=== PATIENT | female | born 2005 | race Asian ===

== ENCOUNTER 2024-08-28 14:40 | Observation (INO) ==
--- NOTE | 2024-08-28 14:45 | ED Triage Note ---
Date of Service August 28, 2024 Provider in Triage Author: Tyler Waggoner History of Present Illness This patient was briefly evaluated while in triage. An abbreviated physical exam was performed. This patient is a 18-year-old Male who presents to the ED for evaluation right abdominal pain x 2 days, worse with movement/walking no urinary symptoms Physical Exam GENERAL: NAD CARDIOVASCULAR: RRR RESPIRATORY: CTA ABDOMEN: BS x 4. RLQ TTP. Initial orders for labs and / or imaging were placed and patient was placed in the waiting area until a bed is available. Please see further documentation for the full ED course.
[2024-08-28 15:28] LABS: Appearance Urine Cloudy (Clear); Bacteria Urine Automated 1+ (None Seen); Bilirubin Urine Negative (Negative); Blood Urine Negative (Negative); Color Urine Dark Yellow; Glucose Urine UA Negative (Negative); Ketones Urine 4+ (Negative); Leukocyte Esterase Urine Negative (Negative); Nitrite Urine Negative (Negative); Protein Urine Trace (Negative); RBC Urine Automated 0-2 /hpf (0-2); Specific Gravity Urine 1.026 (1.000-1.030); Urobilinogen Urine Negative (Negative); WBC Urine Automated 0-5 /hpf (0-5); pH Urine 5.5 (4.5-7.5)
[2024-08-28 15:31] LABS: Basophils # (auto) 0.05 K/uL (0.00-0.20); Basophils % (auto) 0.3 %; Hematocrit (blood only) 39.8 % (37.0-47.0); Hemoglobin 13.7 g/dl (12.0-16.0); Immature Granulocytes # (auto) 0.34 K/uL (0.01-0.20); Immature Granulocytes % (auto) 1.9 %; Lymphocytes # (auto) 1.72 K/uL (1.20-3.40); Lymphocytes % (auto) 9.7 %; Mean Corpuscular Hemoglobin 24.5 pg (25.0-34.0); Mean Corpuscular Hgb Conc 34.4 g/dL (32.0-36.0); Mean Corpuscular Volume 71.2 fL (80.0-100.0); Mean Platelet Volume 10.8 fL (9.4-12.4); Monocytes # (auto) 0.87 K/uL (0.11-0.59); Monocytes % (auto) 4.9 %; Neutrophils # (auto) 14.84 K/uL (1.40-6.50); Neutrophils % (auto) 83.2 %; Platelet Count 342 K/uL (130-400); RDW Coefficient of Variation 14.8 % (11.5-14.5); RDW Standard Deviation 37.2 fL (36.4-46.3); Red Blood Count 5.59 M/uL (4.20-5.40); White Blood Count 17.82 K/ul (4.8-10.8)
[2024-08-28 15:50] LABS: Pregnancy Test, Serum Negative (Negative)
[2024-08-28 15:55] LABS: Albumin Globulin Ratio 1.3 (0.9-2); Albumin Level 4.8 gm/dl (3.4-5.0); BUN Creatinine Ratio 12.1 (10-20); Bilirubin,Total 0.8 mg/dl (0.2-1.0); Calcium 9.9 mg/dl (8.6-10.3); Creatinine Clr Calc Pharmacy 117.7 ml/min; Globulin 3.7 gm/dl (2.5-4.0); Potassium 3.7 mmol/L (3.5-5.1); Total Protein 8.5 gm/dl (6.0-8.3)
[2024-08-28] MEDS: OPTIRAY 320 100ml IV ONE (16:23)
--- NOTE | 2024-08-28 16:43 | CT Scan Report ---
CT SCAN OF THE ABDOMEN AND PELVIS WITH IV CONTRAST CLINICAL HISTORY: Right lower quadrant abdominal pain. COMPARISON STUDY: No priors. TECHNIQUE: Following the IV administration of 93 cc of Optiray 320, CT scan of the abdomen and pelvi s is performed from the lung bases to the proximal femora. Images are reviewed in the axial, sagittal , and coronal planes. IV contrast was administered without complication. A dose lowering technique wa s utilized adhering to the principles of ALARA. CT DOSE: 341.63 mGy.cm FINDINGS: Lung bases: The heart is normal in size and without pericardial effusion. The lung bases are clear. Liver: The contrast-enhanced liver is normal in size, contour, and attenuation. There is no intrahepa tic biliary ductal dilatation. The hepatic veins and portal veins are patent. Gallbladder: Unremarkable. Spleen: Normal in size and attenuation. Pancreas: Unremarkable. Adrenal glands: Unremarkable. Kidneys: The contrast enhanced kidneys are normal in size and without hydronephrosis. The kidneys enh ance symmetrically. Abdominal vasculature: The abdominal aorta is normal in course and caliber. Bowel: There is no bowel obstruction. The appendix is dilated and fluid-filled, measuring up to 1.5 cm in diameter as seen on image #229. The appendiceal wall is thickened and hyperemic and there is pe riappendiceal inflammation. Findings are consistent with acute appendicitis. No abscess is seen. Peritoneum: There is no intraperitoneal free air or abdominal ascites. Lymphadenopathy: None. Pelvic viscera: The bladder is decompressed and not well evaluated. Uterus and adnexa are normal as v isualized in bilateral ovarian follicles. An involuting follicle is suggested in the right ovary. The re is a small to moderate volume of free fluid in the cul-de-sac. Skeletal structures: No lytic or blastic lesions are seen. IMPRESSION: 1. Acute appendicitis. 2. There is no evidence of abscess or perforation. 3. Free fluid in the cul-de-sac is nonspecific and likely physiologic. ACT 112: Negative or not required by law. Electronically signed by: Cl Cross M.D. 08/28/2024 4:42 PM
--- NOTE | 2024-08-28 16:43 | Emergency Department Note ---
History of Present Illness General Chief complaint: Abdominal Pain Stated complaint: SEVERE ABD PAIN Time Seen by Provider: 08/28/24 15:41 History of Present Illness Maximum Pain Intensity: 9 Patient is a healthy 18-year-old female who presents emergency department for evaluation of abdominal pain x 2 days. She states that she feels the pain throughout the but is primarily on the right lower abdomen and radiates across to the left. It is worse with coughing and walking. She rates her discomfort a 9/10 currently. She is felt nauseous, and admits to no appetite today, but has not vomited. No diarrhea or urinary symptoms. No fevers. She tried some Tylenol, without relief. She reports her last menstrual period was 08/07. Denies concern for , STI or vaginal discharge. She is sexually active, last was about a week ago. Home Medications Medication Instructions Recorded Confirmed Type No Known Home Medications 08/28/24 08/28/24 History Allergies Allergy/AdvReac Type Severity Reaction Status Date / Time No Known Allergies Allergy Verified 08/28/24 17:27 Past Med/Surg History Problem List (Updated 08/28/24 @ 16:57 by Tyler Waggoner) Acute appendicitis (Acute) Medical History (Updated 08/28/24 @ 16:57 by Tyler Waggoner) No significant past medical history Surgical History (Updated 08/28/24 @ 16:41 by Tyler Waggoner) No history of previous surgery Social History Smoking Status: Never smoker current occupation: [employer] student from [place] Feels Safe at Home: Yes Review of Systems A total of 10 systems reviewed and were otherwise negative Physical Exam Vital Signs Vital Signs - 24 hr 08/28/24 14:43 08/28/24 17:04 Temperature 36.8 C Temperature Source Temporal Artery Scan Pulse Rate 143 H Pulse Rate [Apical] 116 H Pulse Rhythm Regular Respiratory Rate 20 19 Respiratory Effort / Characteristics Non-Labored Spontaneous Respiratory Depth Normal Blood Pressure 126/63 Blood Pressure [Left Arm] 125/75 Blood Pressure Mean 84 Blood Pressure Mean [Left Arm] 91 Pulse Oximetry 97 100 Oxygen Delivery Method Room Air Room Air Sepsis Recent Fever Within 48 Hours No Sepsis New/Unexplained Change in Mental Status No Sepsis Action Taken by Nursing No Action Required CONSTITUTIONAL: [id number] EYES: Pupils equal, round, reactive to light and accommodation. EOMs intact without nystagmus. Sclera are anicteric. ENT: Tympanic membranes intact, with normal landmarks. External canals are clear. Oral and nasopharynx are clear. Mucous membranes are moist, no lesions, tongue and gums appear normal. NECK: No bruits auscultated. Supple without lymphadenopathy. No thyromegaly. No meningeal signs. Full active range of motion without discomfort. CARDIOVASCULAR: Regular rate and rhythm, with normal S1 and S2, no murmur or gallop or rub is heard. No carotid bruits auscultated. No JVD. Peripheral pulses easily palpable. RESPIRATORY: Breath sounds equal and clear to auscultation without wheezes, rales, or rhonchi heard. Full and equal chest expansion without accessory muscle use or retractions. ABDOMEN: Bowel sounds are present. The abdomen is soft, scaphoid, tender to percussion over the right lower quadrant, and tender to palpation with voluntary guarding in the right lower quadrant. INTEGUMENTARY: No lesions or rash, normal skin turgor. LYMPH: No lymphadenopathy. Course Course The patient was seen and assessed as above by myself from triage, then fully evaluated when she was placed in room a 2. IV lock was initiated. CBC with differential, CMP, urinalysis and serum hCG were collected. After she was roomed, she was ordered IV fluids, Zofran and fentanyl. Diagnostics, as interpreted by me: Laboratory studies: Elevated white count at 17,800 with left shift. No significant electrolyte imbalance. No ALIDA. No transaminitis. test negative. Urine microscopy concerning for dehydration, with 4+ ketones, otherwise no other indicators for infection. Imaging studies: CT scan of the abdomen pelvis with IV contrast is concerning for acute appendicitis. Appendix is dilated and fluid-filled measuring up to 1.5 cm in diameter. No abscess or perforation noted. All laboratory and diagnostic imaging studies were discussed with the patient. Consultation was placed with general surgery, patient discussed with Dr. Jackson. He evaluated the patient in the emergency department, and plan is for the OR later this evening. Please refer to H&P for further information. Differential diagnosis: UTI, pyelonephritis, kidney stone, appendicitis, ovarian cyst, ovarian torsion, , ectopic , PID, tubo-ovarian abscess, among others. Administered Medications Discontinued Medications Fentanyl Citrate (Fentanyl Citrate Pf 100 Mcg/2 Ml Vial) 50 mcg IV NOW STA Stop: 08/28/24 16:44 Last Admin: 08/28/24 17:07 Dose: 50 mcg Documented By: HAKEEM Sodium Chloride (Nss) 1,000 mls @ 999 mls/hr IV .Q1H1M SAMIR Stop: 08/28/24 17:44 Last Admin: 08/28/24 17:08 Dose: 999 mls/hr Documented By: HAKEEM Ioversol (Optiray 320 100ml) 93 ml IV ONCE ONE Stop: 08/28/24 16:24 Last Admin: 08/28/24 16:23 Dose: 93 ml Documented By: JOSE Ondansetron HCl (Ondansetron Inj 2 Mg/Ml 2 Ml Vial) 4 mg IV NOW STA Stop: 08/28/24 16:44 Last Admin: 08/28/24 17:07 Dose: 4 mg Documented By: HAKEEM Medical Decision Making Differential Diagnosis See ED course. Medical Records Attestation: I reviewed the patient's medical records. Home Medications Current Medication List: was personally reviewed by me Laboratory Data Attestation: I reviewed the patient's lab results. 08/28/24 15:10 08/28/24 15:10 Lab Results 08/28/24 Range/Units 15:10 WBC 17.82 H (4.8-10.8) K/ul RBC 5.59 H (4.20-5.40) M/uL Hgb 13.7 (12.0-16.0) g/dl Hct 39.8 (37.0-47.0) % MCV 71.2 L (80.0-100.0) fL MCH 24.5 L (25.0-34.0) pg MCHC 34.4 (32.0-36.0) g/dL RDW Std Deviation 37.2 (36.4-46.3) fL RDW Coeff of Darius 14.8 H (11.5-14.5) % Plt Count 342 (130-400) K/uL MPV 10.8 (9.4-12.4) fL Immature Gran % (Auto) 1.9 % Neut % (Auto) 83.2 % Lymph % (Auto) 9.7 % Butler % (Auto) 4.9 % Eos % (Auto) 0.0 % Baso % (Auto) 0.3 % Neut # (Auto) 14.84 H (1.40-6.50) K/uL Lymph # (Auto) 1.72 (1.20-3.40) K/uL Butler # (Auto) 0.87 H (0.11-0.59) K/uL Eos # (Auto) 0.00 (0.00-0.50) K/uL Baso # (Auto) 0.05 (0.00-0.20) K/uL Immature Gran # (Auto) 0.34 H (0.01-0.20) K/uL Sodium 135 L (136-145) mmol/L Potassium 3.7 (3.5-5.1) mmol/L Chloride 104 (98-107) mmol/L Carbon Dioxide 20 L (21-32) mmol/L Anion Gap 11 (3-11) BUN 7 (6-23) mg/dl Creatinine 0.58 L (0.6-1.2) mg/dl Est Cr Clr Drug Dosing 117.7 ml/min eGFR 133.61 BUN/Creatinine Ratio 12.1 (10-20) Glucose 91 (70-99(Fasting)) mg/dl Calcium 9.9 (8.6-10.3) mg/dl Total Bilirubin 0.8 (0.2-1.0) mg/dl AST 15 (13-39) U/L ALT 11 (7-52) U/L Alkaline Phosphatase 64 (34-104) U/L Total Protein 8.5 H (6.0-8.3) gm/dl Albumin 4.8 (3.4-5.0) gm/dl Globulin 3.7 (2.5-4.0) gm/dl Albumin/Globulin Ratio 1.3 (0.9-2) HCG, Qual Negative (Negative) Urine Color Dark Yellow Urine Appearance Cloudy A (Clear) Urine pH 5.5 (4.5-7.5) Ur Specific [place] 1.026 (1.000-1.030) Urine Protein Trace H (Negative) Urine Glucose (UA) Negative (Negative) Urine Ketones 4+ H (Negative) Urine Blood Negative (Negative) Urine Nitrite Negative (Negative) Urine Bilirubin Negative (Negative) Urine Urobilinogen Negative (Negative) Ur Leukocyte Esterase Negative (Negative) Urine WBC (Auto) 0-5 (0-5) /hpf Urine RBC (Auto) 0-2 (0-2) /hpf U Hyaline Cast (Auto) 3-5 H (0-2) /lpf U Epithel Cells (Auto) 11-20 H (0-2) /hpf Urine Bacteria (Auto) 1+ H (None Seen) Imaging Data Attestation: I personally reviewed and interpreted this imaging study as follows: Radiologist's Impression: Abdomen/Pelvis CT 08/28/24 14:45 CT SCAN OF THE ABDOMEN AND PELVIS WITH IV CONTRAST CLINICAL HISTORY: Right lower quadrant abdominal pain. COMPARISON STUDY: No priors. TECHNIQUE: Following the IV administration of 93 cc of Optiray 320, CT scan of the abdomen and pelvis is performed from the lung bases to the proximal femora. Images are reviewed in the axial, sagittal, and coronal planes. IV contrast was administered without complication. A dose lowering technique was utilized adhering to the principles of ALARA. CT DOSE: 341.63 mGy.cm FINDINGS: Lung bases: The heart is normal in size and without pericardial effusion. The lung bases are clear. Liver: The contrast-enhanced liver is normal in size, contour, and attenuation. There is no intrahepatic biliary ductal dilatation. The hepatic veins and portal veins are patent. Gallbladder: Unremarkable. Spleen: Normal in size and attenuation. Pancreas: Unremarkable. Adrenal glands: Unremarkable. Kidneys: The contrast enhanced kidneys are normal in size and without hydronephrosis. The kidneys enhance symmetrically. Abdominal vasculature: The abdominal aorta is normal in course and caliber. Bowel: There is no bowel obstruction. The appendix is dilated and fluid-filled, measuring up to 1.5 cm in diameter as seen on image #229. The appendiceal wall is thickened and hyperemic and there is periappendiceal inflammation. Findings are consistent with acute appendicitis. No abscess is seen. Peritoneum: There is no intraperitoneal free air or abdominal ascites. Lymphadenopathy: None. Pelvic viscera: The bladder is decompressed and not well evaluated. Uterus and adnexa are normal as visualized in bilateral ovarian follicles. An involuting follicle is suggested in the right ovary. There is a small to moderate volume of free fluid in the cul-de-sac. Skeletal structures: No lytic or blastic lesions are seen. IMPRESSION: 1. Acute appendicitis. 2. There is no evidence of abscess or perforation. 3. Free fluid in the cul-de-sac is nonspecific and likely physiologic. ACT 112: Negative or not required by law. Electronically signed by: Cl Cross M.D. 08/28/2024 4:42 PM MDM Narrative See ED course. Impression & Plan Acute appendicitis Discharge Plan Visit Data Chief Complaint: Abdominal Pain Stated Complaint: SEVERE ABD PAIN ED Provider: Jerson Parrish ED Midlevel Provider: Tyler Waggoner Discharge Problem: Acute appendicitis Patient Disposition: Being Evaluated by Surgeon Forms Stand Alone Forms: [id number] [facility] [employer] Prescriptions Prescriptions: No Action No Known Home Medications Referrals Referrals: PCP,NO [Physician] - Discharge Problem: Acute appendicitis Qualifiers: Acute appendicitis type: with localized peritonitis Appendicitis gangrene presence: without gangrene Appendicitis perforation presence: without perforation Appendicitis abscess presence: without abscess Qualified Code(s): K 35.30 - Acute appendicitis with localized peritonitis, without perforation or gangrene
[2024-08-28] MEDS: fentaNYL citrate PF 100 MCG/2 ML VIAL IV STA (17:07)
[2024-08-28] MEDS: ONDANSETRON INJ 2 MG/ML 2 ML VIAL IV STA (17:07)
[2024-08-28] MEDS: SODIUM CHLORIDE 0.9% 1,000 ML IV SCH ×2 (17:08→22:29)
--- NOTE | 2024-08-28 18:01 | History & Physical Report ---
Date of Service August 28, 2024 Assessment & Plan (1) Acute appendicitis: Plan: History examination and imaging all consistent with acute appendicitis. We discussed her options. We discussed risks which include bleeding, infection, injury to another organ, DVT, PE, OR, CVA etc. Following our discussion I answered all of her questions. Will proceed this evening with laparoscopic appendectomy. Acute appendicitis type: with localized peritonitis Appendicitis abscess presence: without abscess Appendicitis gangrene presence: without ga ngrene Appendicitis perforation presence: without perforation Qualified Code(s): K35.30 - Acute appendicitis with localized peritonitis, without per foration or gangrene History of Present Illness Primary Care Provider: [facility] 18-year-old female who has had abdominal pain for 2 days. It is slowly worsened and now has localized to the right lower quadrant. Allergies Allergy/AdvReac Type Severity Reaction Status Date / Time No Known Allergies Allergy Verified 08/28/24 17:27 Home Medications Medication Instructions Recorded Confirmed Type No Known Home Medications 08/28/24 08/28/24 History Past Med/Surg History Problem List (Updated 08/28/24 @ 16:57 by Tyler Waggoner) Acute appendicitis (Acute) Medical History (Updated 08/28/24 @ 16:57 by Tyler Waggoner) No significant past medical history Surgical History (Updated 08/28/24 @ 16:41 by Tyler Waggoner) No history of previous surgery Social History Smoking Status: Never smoker current occupation: [employer] student from [place] Feels Safe at Home: Yes Review of Systems All systems reviewed & are unremarkable except as noted in HPI & below Physical Exam Constitutional: WD/WN, vitals as above no acute distress and not ill appearing Eyes: PERRL, conjunctivae normal, anicteric sclerae EOM intact bilaterally ENMT: external ear and nose normal, oropharynx normal Ears: no hearing impairment Neck: trachea midline, no thyromegaly Respiratory: normal respiratory effort; no respiratory distress and does not use accessory muscles Cardiovascular: Rate/Rhythm: regular rate and regular rhythm Gastrointestinal (Abdomen): Soft. Positive tenderness greatest in the right lower quadrant. Positive guarding Skin: no rashes, warm and dry Psychiatric: Orientation: alert, oriented x 3 and cooperative Results & Data Vital Signs (Past 12 Hours) Vital Signs Temp Pulse Pulse Resp BP BP Pulse Ox 08/28/24 17:04 116 H 19 125/75 100 08/28/24 14:43 36.8 C 143 H 20 126/63 97 O2 Del Method 08/28/24 17:04 Room Air 08/28/24 14:43 Room Air
[2024-08-28] MEDS: ceFAZolin 2000MG 2,000 MG/15 ML SYR IV STA (18:30)
--- NOTE | 2024-08-28 18:46 | Anesthesiology Consultation ---
Date of Service August 28, 2024 Assessment & Plan Chart Review Chart Review: Acceptable Risk for Surgery and Patient NOT seen in Pre Admission Testing Consults Requested none ASA [id number] Proposed Anesthesia Anesthesia Type: General History Surgery Operation Date: 08/28/24 17:20 Proposed Procedures p Laparoscopic Appendectomy - Rahat Jackson, Height/Weight Height: 5 ft 1 in Weight: 50.9 kg Allergies Allergy/AdvReac Type Severity Reaction Status Date / Time No Known Allergies Allergy Verified 08/28/24 17:27 Medications Home Medications Medication Instructions Recorded Confirmed Last Taken No Known Home Medications 08/28/24 08/28/24 Unknown Past Medical History Medical History No significant past medical history Exercise / Class Metabolic Activity 1 > 8 Run/Swim/Ski/Tennis Past Surgical History Surgical History No history of previous surgery Past Anesthesia History No Hx of Anesthesia Complications and No Family Hx of Anesthesia Complications History of PONV No Hx of PONV and No Hx of Motion Sickness Social History Smoking Status: Never smoker Physical Exam Vital Signs Last Vital Signs Temp 36.8 C 08/28/24 14:43 Pulse 116 H 08/28/24 17:04 Resp 19 08/28/24 17:04 BP 125/75 08/28/24 17:04 Pulse Ox 100 08/28/24 17:04 O2 Del Method Room Air 08/28/24 17:04 Testing Laboratory Results 08/28/24 15:10 08/28/24 15:10 Urine Color Dark Yellow 08/28/24 15:10 Urine Appearance Cloudy (Clear) A 08/28/24 15:10 Urine pH 5.5 (4.5-7.5) 08/28/24 15:10 Ur Specific [place] 1.026 (1.000-1.030) 08/28/24 15:10 Urine Protein Trace (Negative) H 08/28/24 15:10 Urine Glucose (UA) Negative (Negative) 08/28/24 15:10 Urine Ketones 4+ (Negative) H 08/28/24 15:10 Urine Nitrite Negative (Negative) 08/28/24 15:10 Ur Leukocyte Esterase Negative (Negative) 08/28/24 15:10 Urine WBC (Auto) 0-5 /hpf (0-5) 08/28/24 15:10 Urine RBC (Auto) 0-2 /hpf (0-2) 08/28/24 15:10 U Hyaline Cast (Auto) 3-5 /lpf (0-2) H 08/28/24 15:10 U Epithel Cells (Auto) 11-20 /hpf (0-2) H 08/28/24 15:10 Urine Bacteria (Auto) 1+ (None Seen) H 08/28/24 15:10
[2024-08-28] MEDS ORDERED: PROPOFOL IV EMULSION 10 MG/ML 20 ML VIAL IV ONE (19:15)
[2024-08-28] MEDS ORDERED: ROCURONIUM BROMIDE 10 MG/ML 5 ML VIAL IV ONE (19:15)
[2024-08-28] MEDS ORDERED: fentaNYL citrate PF 100 MCG/2 ML VIAL ONE ×2 (19:15→19:46)
[2024-08-28] MEDS ORDERED: ePHEDrine sulfate 50 MG/ML AMP IV PRN (19:20)
[2024-08-28] MEDS ORDERED: NALOXONE HCL 0.4 MG/1 ML VIAL/CARP IV PRN (19:20)
[2024-08-28] MEDS ORDERED: ATROPINE SULFATE 0.1 MG/ML 10ML SYR IV PRN (19:20)
[2024-08-28] MEDS ORDERED: ONDANSETRON INJ 2 MG/ML 2 ML VIAL IV PRN (19:20)
[2024-08-28] MEDS ORDERED: PROMETHAZINE HCL 6.25 MG in SODIUM CHLORIDE 0.9% 50 ML IV PRN (19:20)
[2024-08-28] MEDS ORDERED: FLUMAZENIL 0.1 MG/1 ML 10 ML VIAL IV PRN (19:20)
[2024-08-28] MEDS ORDERED: ONDANSETRON INJ 2 MG/ML 2 ML VIAL ONE (19:48)
[2024-08-28] MEDS ORDERED: DEXAMETHASONE SOD INJ 4 MG/ML VIAL ONE (19:48)
[2024-08-28] MEDS ORDERED: KETOROLAC 30 MG/ML VIAL ONE (19:48)
[2024-08-28] MEDS ORDERED: SUGAMMADEX SODIUM 200 MG/2 ML VIAL IV ONE (20:03)
[2024-08-28] MEDS: BUPIVACAINE/EPINEPHRINE 0.5% MPF 1:200,000 30 ML VIAL ONE (20:31)
--- NOTE | 2024-08-28 20:35 | Operative Report ---
PG Post Operative Report Pre & Post Diagnosis Operation Date: 08/28/24 17:20 Pre-Op Diagnosis: Acute Appendicitis Post-Op Diagnosis: Acute Appendicitis I identified the patient and participated in the time-out.: Yes Procedure Operation Date: 08/28/24 17:20 Actual Procedures p Laparoscopic Appendectomy(Not Applicable) - Rahat Jackson DO Surgeon Rahat Jackson DO Cnc Manager maximino Kaba Estimated Blood Loss 10 Findings Consistent with Post-Op Diagnosis Specimens appendix Description of Procedure After informed consent was obtained the patient was taken to the operating room and placed in supine position. After successful intubation a Wood catheter was placed and the left arm was tucked. I began by making a periumbilical incision with an 11 blade scalpel and carried this down through the soft tissue using electrocautery. The anterior rectus fascia was opened using electrocautery and 2 #0 Vicryl stay sutures were placed. The peritoneum was elevated using hemostats and incised under direct vision using a Metzenbaum scissor. A finger sweep was performed. A 12 mm Leon trocar was placed and the abdomen was insufflated to 18 mmHg. A laparoscope was inserted and the abdomen was examined in 360. A suprapubic 5 mm port and a left lower quadrant 12 mm port were placed under direct vision. The patient was air planed to the left as well as placed in a slight Trendelenburg position. We began by looking in the right lower quadrant. We were able to readily identify the appendix and it was grossly inflamed. It had not perforated. There is a small amount of purulent fluid in the right lower quadrant and the pelvis. We immediately irrigated and suctioned this out. I was able to use primarily blunt dissection to pull the appendix away from the right lower quadrant sidewall. I was then able to use a SOWMYA brown cartridge stapler to transect both the mesentery of the appendix as well as the appendix itself at its base with the cecum. It was then placed into an Endo Catch bag and removed from the camera port site. We thoroughly irrigated the right lower quadrant as well as the pelvis. Initially there was a small amount of bleeding on the mesentery staple line. I controlled this with a clip claims correspondence clerk. Following this maneuver, there was adequate hemostasis. I ran the small bowel backwards from the terminal ileum for about 6 feet all of which was normal. All the peritoneal surfaces were normal. Small/ large bowel, liver, stomach etc. all appeared grossly normal. We did a final ir rigation and then removed all the trochars and desufflated the abdomen. The fascia of the camera port as well as the left lower quadrant were closed using 0 Vicryl in [id number] fashion. Wounds were all irrigated and closed using 4-0 Monocryl. Marcaine was injected around them for postoperative analgesia and skin glue used as a dressing. The patient was awakened extubated and transferred to recovery in stable condition. My physician's materials assistant was present through the entire case. he assisted with prepping the patient and helped with exposure for port placement, helped run the camera and helped with fascial/wound closure at the end of the procedure as well as dressing placement. I attest to the content of the Intraoperative Record and any orders documented therein. Any exceptions are noted below. I attest to the content of the Intraoperative Record and any orders documented therein. Any exceptions are noted below.
--- NOTE | 2024-08-28 20:55 | Anesthesiology Progress Note ---
Date of Service August 28, 2024 Anesthesia Post Procedure Vital Signs Vital Signs: Temp Pulse Pulse Resp BP BP Pulse Ox 08/28/24 20:50 115 H 16 107/70 100 08/28/24 20:44 36.3 C L 110 H 20 108/43 L 97 08/28/24 19:10 37 C 126 H 20 108/72 98 08/28/24 17:04 116 H 19 125/75 100 08/28/24 14:43 36.8 C 143 H 20 126/63 97 O2 Del Method 08/28/24 20:50 Room Air 08/28/24 20:44 Room Air 08/28/24 19:10 Room Air 08/28/24 17:04 Room Air 08/28/24 14:43 Room Air Pain Intensity Right Lower Abdomen: Pain Intensity: 8 Transfer of Care Handoff Completed per policy Notes Mental Status: alert / awake / arousable and participated in evaluation Patient Amnestic to Procedure: Yes Nausea / Vomiting: adequately controlled Pain: adequately controlled Airway Patency, RR, SpO2: stable & adequate BP & HR: stable & adequate Hydration State: stable & adequate Anesthetic Complications: no major complications apparent and Pt Satisfied with anesthetic care
[2024-08-28] MEDS: fentaNYL citrate PF 100 MCG/2 ML VIAL IV PRN (21:02)
[2024-08-28] MEDS: fentaNYL citrate PF 100 MCG/2 ML VIAL ONE (21:11)
[2024-08-28] MEDS: HYDROmorphone INJ 1 MG/ML SYRINGE IV PRN (21:20)
[2024-08-28] MEDS: HYDROmorphone INJ 1 MG/ML SYRINGE ONE (21:23)
[2024-08-28] MEDS: ACETAMINOPHEN 1,000 MG/100 ML VIAL IV PRN (22:29)
[2024-08-28] MEDS: ONDANSETRON INJ 2 MG/ML 2 ML VIAL IV PRN (22:36)
[2024-08-28] MEDS: PROMETHAZINE 6.25 MG/50.25 ML BAG IV STA (23:26)
[2024-08-28] MEDS: cefOXitin 2,000 MG in DEXTROSE 5 % MINI-B 50 ML IV SCH (23:44)
[2024-08-28] MEDS: MoRPHine SULFATE 4 MG/ML 1 ML CARP\\VIAL IV PRN (23:52)
[2024-08-29 00:59] VITALS: O2SAT 98
[2024-08-29 05:50] VITALS: PULSE 87; RESP 17; TEMP 98.2
[2024-08-29 06:13] LABS: Hematocrit (blood only) 33.3 % (37.0-47.0); Hemoglobin 11.6 g/dl (12.0-16.0); Mean Corpuscular Hemoglobin 24.5 pg (25.0-34.0); Mean Corpuscular Hgb Conc 34.8 g/dL (32.0-36.0); Mean Corpuscular Volume 70.4 fL (80.0-100.0); Mean Platelet Volume 11.3 fL (9.4-12.4); Platelet Count 290 K/uL (130-400); RDW Coefficient of Variation 14.7 % (11.5-14.5); RDW Standard Deviation 36.8 fL (36.4-46.3); Red Blood Count 4.73 M/uL (4.20-5.40); White Blood Count 13.06 K/ul (4.8-10.8)
[2024-08-29 06:29] LABS: BUN Creatinine Ratio 12.2 (10-20); Creatinine Clr Calc Pharmacy 139.3 ml/min; Potassium 4.4 mmol/L (3.5-5.1)
[2024-08-29 06:43] LABS: Basophils # (auto) 0.01 K/uL (0.00-0.20); Basophils % (auto) 0.1 %; Immature Granulocytes # (auto) 0.05 K/uL (0.01-0.20); Immature Granulocytes % (auto) 0.4 %; Lymphocytes % (auto) 6.1 %; Monocytes # (auto) 0.14 K/uL (0.11-0.59); Monocytes % (auto) 1.1 %; Neutrophils # (auto) 12.06 K/uL (1.40-6.50); Neutrophils % (auto) 92.3 %; Ovalocytes 1+
[2024-08-29] MEDS ORDERED: oxyCODONE HCL IR 5 MG TAB (IMMEDIATE RELEASE) PO PRN (07:40)
[2024-08-29] MEDS: oxyCODONE HCL IR 5 MG TAB (IMMEDIATE RELEASE) PO PRN (07:50)
[2024-08-29] MEDS ORDERED: ACETAMINOPHEN 325 MG TAB PO PRN (09:06)
--- NOTE | 2024-08-29 09:06 | Surgery Progress Note ---
Date of Service August 29, 2024 Assessment & Plan (1) S/P appendectomy: Plan: POD 1 lap appy VSS , wbc downtrending 13 (17), afebrile post surgical pain/discomfort abd , continue oral pain medication no n.v on clears will advance to regular +flatus anticipate discharge anthony today if tolerating diet and pain controlled as above. doing ok ok for d/c. instructions given Admission and Anticipated Discharge Date Admission Date: August 28, 2024 Subjective post surgical discomfort /pain no n/v , no f/v, CP or SOB no dysuria Review of Systems Constitutional: no fever and no chills Respiratory: no dyspnea Cardiovascular: no chest pain Gastrointestinal: + abdominal pain; no nausea and no vomit ing Genitourinary: no dysuria Musculoskeletal: no muscle weakness Psychiatric: no confusion Physical Exam Constitutional: cooperative and comfortable; no acute distress Respiratory: normal respiratory effort; no respiratory distress Cardiovascular: Rate/Rhythm: + abnormal rate Gastrointestinal (Abdomen): Inspection/Auscultation: + abdominal surgical incision (dermabond CDI ); abdomen not distended Percussion/Palpation: + abdomen tender and abdomen soft Results & Data Vital Signs (Past 12 Hours) Vital Signs Temp Pulse Pulse Resp BP BP Pulse Ox 08/29/24 05:46 98.2 F 87 17 100/59 L 98 08/29/24 03:40 98.4 F 96 H 16 103/61 98 08/29/24 00:59 99.3 F 92 H 16 109/68 98 08/29/24 00:00 99.1 F 110 H 16 111/64 100 08/28/24 23:03 99.3 F 108 H 18 109/68 99 08/28/24 22:30 99.0 F 111 H 16 105/61 99 08/28/24 22:00 98.8 F 105 H 16 105/61 99 08/28/24 21:50 105 H 12 110/63 93 08/28/24 21:40 101 H 14 116/61 98 08/28/24 21:30 108 H 15 108/60 99 08/28/24 21:20 98.2 F 99 H 23 122/77 99 08/28/24 21:10 101 H 16 113/69 97 O2 Del Method 08/29/24 05:46 Room Air 08/29/24 03:40 Room Air 08/29/24 00:59 Room Air 08/29/24 00:00 Room Air 08/28/24 23:03 Room Air 08/28/24 22:30 Room Air 08/28/24 22:00 Room Air 08/28/24 21:50 Room Air 08/28/24 21:40 Room Air 08/28/24 21:30 Room Air 08/28/24 21:20 Room Air 08/28/24 21:10 Room Air Results CBC w Diff Results: RBC 4.73 M/uL (4.20-5.40) 08/29/24 WBC 13.06 K/ul (4.8-10.8) H 08/29/24 Hgb 11.6 g/dl (12.0-16.0) L 08/29/24 Hct 33.3 % (37.0-47.0) L 08/29/24 MCV 70.4 fL (80.0-100.0) L 08/29/24 MCH 24.5 pg (25.0-34.0) L 08/29/24 MCHC 34.8 g/dL (32.0-36.0) 08/29/24 RDW Standard Deviation 36.8 fL (36.4-46.3) 08/29/24 RDW Coefficient of Variation 14.7 % (11.5-14.5) H 08/29/24 Plt Count 290 K/uL (130-400) 08/29/24 MPV 11.3 fL (9.4-12.4) 08/29/24 Neutrophils (%) (Auto) 92.3 % 08/29/24 Lymphocytes (%) (Auto) 6.1 % 08/29/24 Monocytes # (Auto) 0.14 K/uL (0.11-0.59) 08/29/24 Eosinophils # (Auto) 0.00 K/uL (0.00-0.50) 08/29/24 Immature Granulocyte % (Auto) 0.4 % 08/29/24 Neutrophils # (Auto) 12.06 K/uL (1.40-6.50) H 08/29/24 Lymphocytes # (Auto) 0.80 K/uL (1.20-3.40) L 08/29/24 Monocytes # (Auto) 0.14 K/uL (0.11-0.59) 08/29/24 Eosinophils # (Auto) 0.00 K/uL (0.00-0.50) 08/29/24 Basophils # (Auto) 0.01 K/uL (0.00-0.20) 08/29/24 Immature Granulocyte # (Auto) 0.05 K/uL (0.01-0.20) 4 Ovalocytes 1+ 08/29/24 PG Care Time/CCT Total # of Minutes Spent Total Time Spent with Patient: Total time spent is greater than 50% in coordination of care (as documented) at patient's floor/unit and/or counseling patient: Coding Level of Care Code 41131 Post Operative Follow-Up Diagnoses S/P appendectomy Z90.49
[2024-08-29 10:21] VITALS: BP 109/68
--- NOTE | 2024-08-30 11:06 | Discharge Summary ---
Date of Service August 29, 2024 Admission HPI Per Admitting Provider 18-year-old female who has had abdominal pain for 2 days. It is slowly worsened and now has localized to the right lower quadrant. Principal Diagnosis acute appendicitis Discharge Exam Constitutional cooperative and comfortable; no acute distress Respiratory normal respiratory effort; no respiratory distress Gastrointestinal (Abdomen) Inspection/Auscultation: + abdominal surgical incision (dermabond CDI ); abdomen not distended Percussion/Palpation: + abdomen tender and abdomen soft Discharge Data Allergies Allergy/AdvReac Type Severity Reaction Status Date / Time No Known Allergies Allergy Verified 08/28/24 17:27 Procedures Performed Operation Date: 08/28/24 17:20 Actual Procedures p Laparoscopic Appendectomy(Not Applicable) - Rahat Jackson, Ordered Studies 08/28/24 14:45 CT abd pelvis IV con only Stat Hospital Course (1) S/P appendectomy: This is a 18 yo female who presented to the [facility] ED on 08/28/24 with abdominal pain. Workup in the ED showed a WBC of [address] a/p concerning for acute appendicitis. The patient was tender to palpation in the RLQ. Patient made NPO with IVF and booked for the OR. On 08/28/24 the patient went to the OR with Dr Jackson for a laparoscopic appendectomy. The patient tolerated the procedure well, see operative report for full details. Post operatively the patient's diet was advanced, pain managed on prn meds, and incisions clean/dry/intact. On POD#1 the patient was deemed stable for discharge to home. She was given a prescription for oral pain medication, follow up recommendations, and return precautions. Total Time Total Time Spent Total Time Spent (In Minutes): 15 Discharge Plan Discharge Items Patient Disposition: Home - Self-Care Reason For Visit: APPY Discharge Diagnosis: laparoscopic appendectomy Activity: Per Instructions section Lifting: No more than 10 pounds Bathing Comment: may shower; no soaking in tubs/pools x 2weeks Exercise/Sports: Wait until after follow-up appointment Driving/Machine Use: no driving while taking narcotics for pain Non-emergency contact: Surgeon Call non-emergency contact if: you have any medication questions, your symptoms worsen, your pain is not controlled, your pain is worsening, you have a fever, your temperature is above 101.5, your wound has increased redness, your wound has increased drainage and your wound pain has increased Follow-up/Referrals: Rahat Jackson, [Surgeon] - 09/10/24 1:15 pm (please call to schedule follow up in clinic within 2 weeks ) PCP,NO [Physician] - Diet: Regular Addtl Attending Provider Instructions: You have skin glue over your incisions called dermabond. you may shower with this on. It will tend to dissolve and fall off within a couple weeks. Do not pick at the skin glue You may purchase Tylenol and/or Ibuprofen over the counter if needed for additional pain control over the next few days. Take per manufacturers instr uctions Pending Studies at Discharge: Yes Studies:: surgical pathology Stand-Alone Forms: My [facility], Work/School Release, Smoking Cessation Medications and DC Order Prescriptions: New oxycodone 5 mg tablet 5 - 10 mg PO .[id number] PRN (Reason: pain, for initial therapy, max 6 tabs per day) Qty: 10 0RF Discharge Orders: Discharge Order (Routine); Ordered 08/29/24 Ordered By: Cesar Peterson Admission Data Admit Date/Time: 08/28/24 20:47 Attending Provider: Rahat Jackson Admit Provider: Rahat Jackson Primary Care Provider: [facility] Other Interventions: Discharge Summary Assessment (RN) Last Done: 08/29/24 10:20 Coding Level of Care Code 28086 IN/OBS DISCH 30 MIN/LESS Diagnoses S/P appendectomy Z90.49
== END 2024-08-29 12:30 | disposition home or self-care (01) | DRG 399 ==
LOC: ED 14:40 → EDSEX 14:40 → OR 19:08 → 3W 20:47 → INTOOBSV 20:47
DX: K35.30 Acute appendicitis with localized peritonitis, without perforation or gangrene